=== PATIENT | female | born 1970 | race Caucasian/White ===

== ENCOUNTER 2018-06-18 20:08 | Emergency (ER) | payer SELFPAY ==
[2018-06-18 20:09] VITALS: BP 153/98; PULSE 100; RESP 15; TEMP 36.9; BMI 27.2
[2018-06-18] MEDS: Lidocaine/Epi/Tetracaine 50 ML 1 APPLIC TOPICAL (21:41)
--- NOTE | 2018-06-18 22:08 | ED.VISSUMM ---
- ER Visit Summary Date of Service: 06/18/18 Chief Complaint: Facial abscess History of Present Illness: The patient is a 48 F who presents with a facial abscess. She initially started with a zit above her left upper lip about 1 week ago. She now complains of severe pain at the site and some drainage. She has been attempting warm compresses but it continues to be significantly painful and is not improved. No history of prior similar symptoms. She has no medical history. She has not a diabetic. Physical Examination: Afebrile vitals unremarkable There is an abscess above the upper lip slightly to the left. There is a central open wound with some spontaneous drainage. Heart regular Lungs clear Patient is extremely anxious Test Results: Not indicated Emergency Department Course and Treatment: Patient was very anxious and exam was difficult. She does let was applied given that there was an open wound. She did have some mild improved symptoms with this. A small amount of local lidocaine was injected. The open wound was explored with a curved hemostat. There was some further purulent drainage. Patient will be discharged on clindamycin given reported Keflex allergy. She understands to return for new or worsening symptoms. She was discharged home in good condition. Treatment Plan: [] Disposition: Discharge Impression: Facial abscess This note was generated with [employer] dictation software. It may contain incorrect words, spelling, and punctuation that were not noted in review of the chart prior to signing ED Disposition - Plan for ED Patient: Chief Complaint: Abscess Referrals: Kaylan Devries [Primary Care Provider] -
--- NOTE | 2018-06-18 22:10 | ED.DEP ---
ED Disposition - Plan for ED Patient: Chief Complaint: Abscess Instructions: ED Cellulitis Facial, ED Abscess IandD Prescriptions: Clindamycin [Cleocin] 300 mg PO 4X/DAY #80 cap Referrals: Kaylan Devries [Primary Care Provider] -
[2018-06-18 22:25] VITALS: BP 134/71; PULSE 96; RESP 22; O2SAT 98
--- NOTE | 2018-06-18 22:25 | ED.RN ---
THIS NURSE REVIEWED D/C INSTRUCTIONS WITH PT. PT VERBALIZED UNDERSTANDING OF INSTRUCTIONS. PT DENIES FURTHER NEEDS OR QUESTIONS AT THIS TIME. PT AMBULATES FROM ROOM ON OWN WITHOUT ASSISTANCE FROM STAFF
== END 2018-06-18 22:26 | disposition home or self-care (01) ==
PROVIDERS: Emergency Provider Emergency Medicine; Family Provider Family Medicine; PCP Family Medicine
DX: L02.01 Cutaneous abscess of face (principal); Z72.0 Tobacco use
CPT/HCPCS: 99282